=== PATIENT | female | born 1965 | race Caucasian/White ===

== ENCOUNTER 2020-07-26 17:34 | Emergency (ER) | payer BC, OTHER ==
[~2020-07-26] VITALS: Ht 160 cm; Wt 84.4 kg
--- NOTE | 2020-07-26 17:50 | NUR ---
BIB [facility] FROM HOME,WORSENING ANXIETY ATTACK SINCE SHE GOT A CALL THAT SHE HAS BREAST CANCER LAST WEEK. PATIENT A/OX4, BREATHING EVEN AND UNLABORED, NOS OB NOTED, NEEDS ATTENDED. KEPT COMFORTABLE, ATTACHED TO THE BUSINESS OFFICE MANAGER.
[2020-07-26] MEDS ORDERED: LORAZEPAM INJ 2 MG/ML VIAL IV ONE (18:00)
[2020-07-26] MEDS ORDERED: IV NS 0.9% 1,000 ML BAG IV ONE (18:00)
[2020-07-26] MEDS ORDERED: LORAZEPAM INJ 2 MG/ML VIAL ONE (18:24)
--- NOTE | 2020-07-26 18:44 | NUR ---
PATIENT IN BED, RESTING, NO DISTRESS NOTED.
--- NOTE | 2020-07-26 19:14 | NUR ---
PATIENT A/OX4, BREATHING EVEN AND UNLABORED, NO SOB NOTED. NEEDS ATTENDED. IV removed. Catheter intact and site benign. Pressure and 4x4 applied to site. No bleeding noted.Patient discharged to home in stable condition. Written and verbal after care instructions given. Patient verbalizes understanding of instruction. will picking tech the patient.
[2020-07-26 19:23] VITALS: BP 142/82
== END 2020-07-26 19:24 | disposition home or self-care (01) ==
LOC: ER 17:49
DX: F41.9 Anxiety disorder, unspecified (principal); R94.31 Abnormal electrocardiogram [ECG] [EKG]
CPT/HCPCS: 93005; 96361; 96374; 99283; J2060; J7030